=== PATIENT | female | born 1955 | race Caucasian/White ===

== ENCOUNTER 2024-04-18 08:28 | Day surgery (SDC) | payer MEDICARE, BC ==
[2024-04-18] VITALS (7 sets, daily range): BP systolic 131–151; BP diastolic 61–73; PULSE 89–109; TEMP 98.1–98.3
[~2024-04-18] VITALS: Ht 170.2 cm; Wt 81.4 kg
[~2024-04-18 08:28] MED LIST: CITRACAL PETITE1 TAB PO; CRESTOR5 MG PO; DULCOLAX S10 MG/SUPP RC; FERROUS SU325 MG/TAB PO; IMODIUM 2MG CAPS2 MG PO; K-DUR 10 MEQ T10 MEQ PO; LASIX 20MG TABL20 MG PO; LR 1,000 ML IV SCH; MASON NATURAL2000 IU PO; MELATIN 3 MG-11 TAB PO; MILK OF MA400 MG/52 PO; MULTI VITAMINS1 TAB PO; NATURAL C500 MG PO; OMEGA-3 1000 MG1 CAP PO; PRINIVIL5 MG PO; PROBIOTIC DIGE1 EACH PO; PROTONIX 40MG T40 MG PO; REGLAN 5MG T5 MG/TAB PO; REMERON 15M15 MG/TA1 PO; ROBITUSSIN100 MG/5 M PO; TRANSDERM-0.5 MG/21 TD; TYLENOL 500MG500 MG PO; ULTRAM 50MG TAB50 MG PO; ZOFRAN 4MG T4 MG/TAB PO
[2024-04-18] MEDS ORDERED: Midazolam 2 MG/2 ML VIAL ONE (08:53)
[2024-04-18] MEDS ORDERED: Succinylcholine PF 200 MG/10 ML SYRINGE IV ONE (08:53)
[2024-04-18] MEDS ORDERED: Lidocaine PF 2% (20 MG/ML) 5 ML VIAL ONE (08:53)
[2024-04-18] MEDS ORDERED: fentaNYL 50 MCG/ML 2 ML VIAL ONE (08:53)
[2024-04-18] MEDS ORDERED: Ondansetron 4 MG/2 ML VIAL ONE (08:53)
[2024-04-18] MEDS ORDERED: Rocuronium 50 MG/5 ML Multi-Dose VIAL ONE ×2 (08:53→11:26)
[2024-04-18] MEDS ORDERED: CLARITIN 1010 MG/TAB PO (10:24)
[2024-04-18] MEDS ORDERED: NEURONTIN300 MG/CAP PO (10:25)
[2024-04-18] MEDS ORDERED: MAG-OX 400400 MG/TAB PO (10:27)
[2024-04-18] MEDS ORDERED: Ondansetron 4 MG/2 ML VIAL IV PRN ×2 (12:15→13:45)
[2024-04-18] MEDS ORDERED: droPERidol 2.5 MG/ML 2 ML VIAL IV PRN (12:15)
[2024-04-18] MEDS ORDERED: hydrALAZINE 20 MG/ML 1 ML VIAL IV PRN ×2 (12:15→17:30)
[2024-04-18] MEDS ORDERED: Meperidine 50 MG/ML 1 ML VIAL IV PRN (12:15)
[2024-04-18] MEDS ORDERED: HYDROmorphone 1 MG/1 ML SYRINGE [PACU/SDC ONLY] IV PRN (12:15)
[2024-04-18] MEDS ORDERED: fentaNYL 50 MCG/ML 1 ML SYRINGE/VIAL [PACU/SDC ONLY] IV PRN (12:15)
[2024-04-18] MEDS ORDERED: Ketorolac 30 MG/ML VIAL ONE (13:24)
[2024-04-18] MEDS ORDERED: NORCO 325 MG-51 TAB PO (13:36)
--- NOTE | 2024-04-18 17:01 | NUR ---
PATIENT BROUGHT TO FLOOR AT APPROXIMATELY 1615. POST OP VITALS RUNNING. POST OP FLUIDS INFUSING INTO LEFT SUBCLAVIAN PORT. PATIENT ON 2L NC BUT ON RA BASELINE. DAUGHTER IN THE ROOM. LAP SITES X3 WITH BANDAIDS CDI AND ABDOMINAL BINDER ON. PATIENT DROWSY BUT AROUSABLE. PATIENT ENCOURAGED TO TAKE DEEP BREATHS. PATIENT NOT ABLE TO BEGIN ICE CHIPS OR SIPS OF WATER PATIENT WAS NAUSEATED THROUGHOUT STAY IN PACU AND WANTS TO REST FOR A BIT. NO FURTHER NEEDS. CALL LIGHT IN REACH.
--- NOTE | 2024-04-18 17:59 | NUR ---
PATIENT OFFERED A VARIETY OF LIQUIDS OR ICE CHIPS. PATIENT GIVEN CHICKEN BROTH TO TRY. DR. POSADAS HAS ORDERED TO FINISH POST OP FLUIDS AND THEN INT PATIENT'S IV.
[2024-04-18] MEDS ORDERED: Magnesium Oxide 400 MG TAB PO SCH (18:00)
--- NOTE | 2024-04-18 19:53 | NUR ---
PT ASSISTED TO BATHROOM W/ONE ASSIST/GAIT BELT. SLOW AND STEADY GAIT. VOIDS AND BACK TO BED. HAS ABD BINDER IN PLACE. ROBOTIC SITES X3. PT DENIES NAUSEA.
--- NOTE | 2024-04-18 20:50 | NUR ---
PT MEDICATED WITH HS MEDS INCLUDING NORCO FOR ABD PAIN. IVF COMPLETE AND LT PORT FLUSHED. BED ALARM ON FOR SAFETY.
[2024-04-18] MEDS ORDERED: Mirtazapine 15 MG TAB PO SCH (21:00)
[2024-04-18] MEDS ORDERED: Gabapentin 300 MG CAP PO SCH (21:00)
--- NOTE | 2024-04-18 22:00 | NUR ---
PT CALLS FOR NURSE, THOUGHT SHE HEARD HER IN HALLWAY. REORIENTED TO PLACE AND TIME. OFFERED REASSURANCE.
[2024-04-19] VITALS (8 sets, daily range): BP systolic 107–147; BP diastolic 68–81; PULSE 88–111; TEMP 97.8–98.5
--- NOTE | 2024-04-19 01:00 | NUR ---
ASSISTED TO BATHROOM, VOIDS AND BACK TO BED. PT MORE CLEAR.
--- NOTE | 2024-04-19 05:46 | NUR ---
PT UP TO BATHROOM, VOIDS AND BACK TO BED. DOING WELL. REMAINS OFF OXYGEN.
--- NOTE | 2024-04-19 08:00 | NUR ---
PATIENT IS A&O. VSS. NO COMPLAINTS. LEFT PORTACATH TO INT. TOLERATING GENERAL DIET. VOIDING. ABD LAP SITES X3 ARE CD&I WITH BANDAID. ABD BINDER INPLACE. HEAD TO TOE ASSESSMENT COMPLETE. PLAN IS TO DISCHARGE HOME LATER TODAY. NO OTHER NEEDS AT THIS TIME. CALL LIGHT IN REACH.
--- NOTE | 2024-04-19 09:30 | NUR ---
vessel slag worker met with pt to discuss discharge planning. She reports to live with her , Anibal [phone] (home #) in [place]. She sees Dr. Lagos for PCP needs and obtains medications from [facility] with no difficulties. Pt states she is independent with ADLS and uses a cane and FWW for DME when she feels weak or unsteady. She reports her daughter, Shahla and is DPOA-HC. SW verified this on hard chart. Pt reports she has been up with assist from RN and has been independent in the bathroom. SW notes pt has discharge in from Dr Brooks. Discharge Plan: home
--- NOTE | 2024-04-19 14:24 | NUR ---
D: Protocol Manager stopped by room on rounds. A: Pt was resting and content. Pt has no needs right now. P: Protocol Manager informed pt that if she needed anything from the [facility] area to let her nurse know. Protocol Manager will follow up as needed.
--- NOTE | 2024-04-19 16:30 | NUR ---
PATIENT'S AND DAUGHTER NOW HERE FROM [facility]. GAVE DISCHARGE INSTRUCTIONS, E-SCRIPT SENT, AND DISCUSSED F/U APT. ANSWERED QUESTIONS/CONCERNS. PORTACATH FLUSHED, HEPARIN PER PROTOCOL AND DE-ACCESSED. COVERED PORTACATH SITE WITH GAUZE & TEGADERM. PATIENT IS DRESSED, PACKED AND ESCORTED OUT VIA WC TO PERSONAL VEHICLE WITH FAMILY.
== END 2024-04-19 16:30 | disposition home or self-care (01) ==
LOC: SDCO 08:28 → SURG 14:15 → SDCO 04-19 16:30
DX: K43.0 Incisional hernia with obstruction, without gangrene (principal); K66.0 Peritoneal adhesions (postprocedural) (postinfection); C54.1 Malignant neoplasm of endometrium; I10 Essential (primary) hypertension; E78.5 Hyperlipidemia, unspecified; F32.A Depression, unspecified; G47.00 Insomnia, unspecified; K21.9 Gastro-esophageal reflux disease without esophagitis; Z95.828 Presence of other vascular implants and grafts; Z79.899 Other long term (current) drug therapy
CPT/HCPCS: OP; A4314; A9284; C1781; J0690; J1170; J1790; J1885; J2250; J2405; J2704; J2795; J3010